=== PATIENT | female | born 1945 | race Caucasian/White ===

== ENCOUNTER 2022-08-26 08:12 | Outpatient (CLI) | payer MEDICARE, OTHER | END 2022-08-26 08:13 | disposition home or self-care (01) | LOC: CSHWCC 08:12 | PROVIDERS: ATTEND Preventive Medicine Undersea and Hyperbaric Medicine | DX: Z93.6 Other artificial openings of urinary tract status (principal) | CPT/HCPCS: 97139; G0463; 99203 ==

== ENCOUNTER 2022-09-03 14:32 | Outpatient (CLI) | payer MEDICARE, OTHER | END 2022-09-03 14:33 | disposition home or self-care (01) | LOC: CSHWCC 14:32 | PROVIDERS: ATTEND Preventive Medicine Undersea and Hyperbaric Medicine | DX: Z93.6 Other artificial openings of urinary tract status (principal) | CPT/HCPCS: 97139; G0463; 99212 ==